=== PATIENT | male | born 1995 | race Caucasian/White ===

== ENCOUNTER 2017-03-09 21:36 | Emergency (ER) | payer MEDICAID ==
[~2017-03-09] VITALS: Ht 182.9 cm; Wt 85.0 kg
[2017-03-09 21:58] VITALS: BP 121/69
== END 2017-03-10 00:35 | disposition home or self-care (01) ==
LOC: ER 21:38
DX: R21 Rash and other nonspecific skin eruption (principal); N50.89 Other specified disorders of the male genital organs; F12.10 Cannabis abuse, uncomplicated
CPT/HCPCS: 99281